=== PATIENT | female | born 1940 | race Caucasian/White ===

== ENCOUNTER → 2023-09-04 09:47 | Outpatient (REF) | payer OTHER, SELFPAY | LOC: RAD 09:47 | PROVIDERS: ATTENDING PHYSICIAN Surgery Vascular Surgery; FAMILY PHYSICIAN Internal Medicine | DX: I65.21 Occlusion and stenosis of right carotid artery (principal); I73.9 Peripheral vascular disease, unspecified | CPT/HCPCS: 93880; 93922; 93925 ==

== ENCOUNTER → 2023-10-04 09:53 | Outpatient (REF) | payer OTHER, SELFPAY | LOC: RCS 09:53 | PROVIDERS: ATTENDING PHYSICIAN Internal Medicine; FAMILY PHYSICIAN Internal Medicine | DX: I35.0 Nonrheumatic aortic (valve) stenosis (principal) | CPT/HCPCS: 93306 ==

== ENCOUNTER → 2024-04-06 10:33 | Outpatient (REF) | payer OTHER, SELFPAY | LOC: RAD 10:33 | PROVIDERS: ATTENDING PHYSICIAN Surgery Vascular Surgery; FAMILY PHYSICIAN Internal Medicine | DX: I73.9 Peripheral vascular disease, unspecified (principal); I65.21 Occlusion and stenosis of right carotid artery | CPT/HCPCS: 93880; 93922 ==

== ENCOUNTER 2024-06-03 20:16 | Inpatient (IN) | payer OTHER, SELFPAY ==
[2024-06-03] VITALS (11 sets, daily range): BP systolic 90–165; BP diastolic 56–116; BMI 35.3
--- NOTE | 2024-06-03 16:58 | ED.GENMED ---
History of Present Illness
General
Chief Complaint: Blood Pressure Problem
Source: patient
Time Seen by Provider: 06/03/24 16:37
History of Present Illness
History of Present Illness:
84-year-old female presents to the emergency room complaining of elevated blood pressure and heart rate and mild chest discomfort. Patient states she was feeling unwell today with palpitations and feeling not herself. Her blood pressure cuff gave
her a blood pressure reading of 190 systolic as well as a heart rate in the 140s. She did not feel that her or have any improvement of her measurements after relaxing for several minutes prompting her visit to the emergency room. Patient denies
any history of atrial fibrillation. She does not take any oral anticoagulants though she does take Plavix. Her plugger is Dr. Corral
Past History
Past History
ED Past Medical History: HTN, Hypercholesterolemia, Valvular disease and Other (OA,)
ED Past Surgical History: Cardiac, Cholecystectomy and Orthopedic
Social History
Tobacco: Former smoker
Alcohol: None
Drug: None
Personal:
Living: with family
Phy Exam
Physical Exam
Physical Exam:
General: Awake, Alert, Oriented X3. No acute distress.
Vitals: Tachycardic, mildly hypertensive
Head: Atraumatic
Eyes: Pupils equal, EOMI
Throat: Airway intact, no exudates
Neck: Trachea midline
Lungs: Clear and equal b/l
Heart: Tachycardic, irregular rate, no murmurs
Abd: Soft, Nontender, No pulsatile mass
Neuro: Nonfocal
Skin: No rash, warm and dry
Extremities: pulses equal b/l, no edema
Course
Orders/Labs/Results
Orders:
Orders
06/03/24 16:21
EKG [Electrocardiogram (*1)] Urgent
Reason for Study: Palpitations
EKG- Treatment ONCE
06/03/24 16:47
Complete Blood Count/With Diff Urgent
Comprehensive Metabolic Panel Urgent
Troponin I Urgent
06/03/24 16:55
Diltiazem 125 mg/125 ml Nss [Cardizem] 125 mg in 125 ml IV NOW
Initial dose in mg/hr, then titrate:: 5
Titrate to keep:: Heart rate 80-100 bpm
Titrate by mg/hr:: 5 mg/hr
Frequency of titrations (minutes):: 15
Maximum dose in mg/hr:: 15
Diltiazem HCl [Cardizem] 20 mg IV NOW STA
06/03/24 19:[address] Non Medication Order As Directed
Physician Order: PTT 6 hours after initial start of Heparin infusion
06/03/24 19:30
Heparin 21191 Units/250 ml 25,000 units in 250 ml IV PER PROTOCOL
Weight to be used for heparin protocol in kilograms (kg):: 86.1
Protocol:: Cardiac Tx/Acute Coronary
PTT Goal Range to be used:: PTT 73 to 111 seconds
Order type:: Initial
INITIAL Infusion Dose (UNITS/KG/hr) & then follow protocol:: 12 units/kg/hr
Infusion Dose in UNITS/hr & then follow protocol (UNITS/hr):: 1,000
INFUSION RATE in mL/hr & then follow protocol (mL/hr):: 10
PTT less than or equal to 64 seconds:: Increase rate by 200 units/hr (+ 2 mL/hr)
PTT 64.1 to 72.9 seconds:: Increase rate by 100 units/hr (+ 1 mL/hr)
PTT 73 to 111 seconds:: Target Range. No change in rate.
PTT 111.1 to 130.9 seconds:: Decrease rate by 100 units/hr (- 1 mL/hr)
PTT 131 to 199.9 seconds:: HOLD for 1 hr. Then decrease rate by 200 units/hr (- 2 mL/hr)
PTT greater than or equal to 200 seconds:: HOLD for 2 hrs & Notify Provider. Then decrease by 200 units/hr (-
2 mL/hr)
Lab follow-up:: Each change, PTT q6h until 2 consecutive are therapeutic. Then PTT
daily.
06/03/24 19:44
PTT Urgent
Comment: Obtain baseline before beginning heparin infusion if not already collected
06/03/24 19:55
Admit/Transfer Patient As Directed
Co-Sign Provider:
Level of Care: Inpatient admission
Assign to:: IVU
Physician / Group: anthony
Diagnosis: afib rvr
Reason for Hospitalization: afib rvr
Expected length of stay greater than two midnights?: Yes
ELOS- Estimated Length of Stay in days: 2
I certify the patient meets the requirements for IP care: Yes
Code Status As Directed
Resuscitation Status: Do not resuscitate
Reached after discussion with pt or family/Healthcare POA: Yes
PRN Pain Medication Management As Directed
May give lesser potent ordered pain med per pt: Yes
preference::
Protocol:: Medication orders for pain may be administered in a
manner that supports deferring to patient preference
when the pt is:
- Requesting an ordered lesser potent pain medication.
Least to most potent pain medications are defined
as: acetaminophen < NSAID < tramadol < opioids
(morphine, oxycodone, hydromorphone).
- Requesting a lesser dose of the same medication IF
ORDERED.
- Requesting a less intrusive route of administration
if both routes are prescribed by the provider (PO <
IV).
06/03/24 19:56
DNR Bracelet Application ONCE
Abnormal Lab Results
06/03/24
16:47
MCH 31.4 H pg
(27.0-31.0)
MPV 10.9 H fL
(7.4-10.4)
Absolute Monos (auto) 0.9 H 10^3/uL
(0.1-0.6)
Monocytes % 9.4 H %
(1.7-9.3)
BUN 32 H mg/dl
(7-17)
Glucose 134 H mg/dl
(70-99)
06/03/24 16:47
06/03/24 16:47
Vital Signs
Initial and Last Documented VS:
Initial Vital Signs
Temp Pulse Resp BP Pulse Ox
98.6 F 170 22 163/94 98
06/03/24 16:20 06/03/24 16:20 06/03/24 16:20 06/03/24 16:20 06/03/24 16:20
Last Documented Vital Signs
Temp Pulse Resp BP Pulse Ox
98.2 F 91 22 165/67 92
06/03/24 17:00 06/03/24 20:45 06/03/24 20:45 06/03/24 20:00 06/03/24 20:45
MDM/Problems Addressed
Differential Diagnosis Includes:
Atrial fibrillation, SVT, frequent PACs
MDM/Problems Addressed:
Patient noted to have atrial fibrillation with rapid ventricular response. Troponin is not elevated. Cardizem bolus and infusion started with adequate control of rate. Patient remains in A-fib. She is not anticoagulated and therefore not a
candidate for cardioversion here in the emergency room. Patient will require hospitalization for continued rate control, cardiology evaluation. Communicated with Dr. Mirian Hernandez who recommends heparin for now.
Chronic conditions affecting care: HTN and Other (Aortic stenosis with TAVR)
*Pulse Oximetry
Patient hypoxic: no
*EKG
Interpreted by ED Provider?: Yes
Interpretation: abnormal
Heart Rate: 147
Rate: tachycardiac
Rhythm: a-fib
QRS Pattern: left bundle branch block
Ischemia: non-specific ST changes
*Retail Cashier Associate Interpretation
Rate: tachycardiac
Interpretation: abnormal
Heart Rate: 147
Rhythm: a-fib
*Critical Care Note
Total Time (30-74mins, 75-104mins- exclusive of procedures): 32 min
comment:
Critical care statement: A total of 32 minutes of critical care time was provided for this patient. This includes management of unstable vital signs, evaluation of the patient at bedside, reviewing the patient's pertinent medical records, discussion
with consultants, review of old EKGs and review of pertinent medical records. This time with separate from time utilized to perform the aforementioned documented procedures
ED Attending Note
-
Portions of this chart may have been created with voice recognition software.� Occasional wrong word or��sound alike� substitutions may have occurred due to the inherent limitations of voice recognition software.
Discharge Plan
Departure
Patient Disposition: Admit
Date of Disposition: 06/03/24
Time of Disposition: 19:31
Admit to: Telemetry
Presentation/result/management discussed w/ accepting MD/DO: Hospitalist
Condition: Fair
Discharge Problem:
Atrial fibrillation with RVR
Interventions
Interventions:
*Risk Screen - Suicide Last Done: 06/03/24 16:20
*General Assessment Last Done: 06/03/24 16:20
*Neglect/Abuse Screening Last Done: 06/03/24 16:20
*ED- Fall Risk Assessment Last Done: 06/03/24 16:20
*ED COVID-19 Vaccine History Last Done: 06/03/24 16:20
ED- Cardiac Assessment Last Done: 06/03/24 17:00
ED- Neurological Assessment Last Done: 06/03/24 17:00
ED- Pulmonary Assessment Last Done: 06/03/24 17:00
[2024-06-03 16:59] LABS: % Basophils 0.7 % (0-2); % Eosinophils 1.5 % (0-6); % Immature Granulocytes 0.3 % (0-0.5); % Lymphocytes 26.8 % (20.5-51.1); % Monocytes 9.4 % (1.7-9.3); % Neutrophils 61.3 % (42.2-75.2); Absolute Basophils 0.1 10^3/uL (0-0.2); Absolute Eosinophils 0.1 10^3/uL (0-0.7); Absolute Lymphocytes 2.4 10^3/uL (1.2-3.4); Absolute Monocytes 0.9 10^3/uL (0.1-0.6); Absolute Neutrophils 5.6 10^3/uL (1.4-6.5); Hematocrit 40.7 % (37.0-47.0); Hemoglobin 14.1 g/dL (12.0-16.0); Mean Corp Hgb Conc. 34.6 g/dL (33.0-37.0); Mean Corpuscular Hgb 31.4 pg (27.0-31.0); Mean Corpuscular Volume 90.6 fL (81.0-99.0); Mean Platelet Volume 10.9 fL (7.4-10.4); Nucleated Red Blood Cells % 0 %; Platelet Count 185 10^3/uL (130-400); Red Blood Cell Count 4.49 10^6/uL (4.20-5.40); Red Cell Dist. Width 13.6 % (11.5-14.5); White Blood Cell Count 9.1 10^3/uL (4.8-10.8)
[2024-06-03] MEDS: CARDIZEM 20 MG IV (17:10)
[2024-06-03] MEDS: CARDIZEM 125 IV (17:11)
[2024-06-03 17:14] LABS: ALT (SGPT) 29 U/L (0-35); AST (SGOT) 34 U/L (14-36); Albumin 4.4 g/dl (3.5-5.0); Alkaline Phosphatase 79 U/L (38-126); Blood Urea Nitrogen 32 mg/dl (7-17); Calcium 9.6 mg/dl (8.4-10.2); Carbon Dioxide 26 mmol/L (22-30); Chloride 105 mmol/L (98-107); Estimated Creatinine Clearance 43 ml/min; Glucose 134 mg/dl (70-99); Potassium 4.2 mmol/L (3.5-5.1); Sodium 140 mmol/L (135-145); Total Bilirubin 0.6 mg/dl (0.2-1.3); Total Protein 6.7 g/dl (6.3-8.2)
[2024-06-03 17:31] LABS: Troponin I 0.015 ng/ml
--- NOTE | 2024-06-03 19:59 | HPS.HSE ---
Family Physician
-
Family Physician: Forrest Fallon
Chief Complaint
-
tachycardia, chest tightness
History of Present Illness
84-year-old female past medical history of CAD, chronic left bundle branch block, severe aortic stenosis status post TAVR, paroxysmal supraventricular tachycardia, TIA, hypertension, hyperlipidemia, peripheral arterial disease, obesity, degenerative
joint disease, chronic back pain presenting with elevated blood pressure and heart rate and mild chest discomfort. Patient is feeling unwell today with palpitations and not feeling herself. Her blood pressure was 190 systolic and heart rate in the
140s. Denies history of atrial fibrillation. She has chronic dizziness. No fevers or chills or cough. No swelling or weight gain.
She is a former smoker. Drinks alcohol occasionally.
Medical History
Past Medical History
Past Medical History: Reports Other (CAD, chronic left bundle branch block, severe aortic stenosis status post TAVR, paroxysmal supraventricular tachycardia, TIA, hypertension, hyperlipidemia, peripheral arterial disease, obesity, degenerative joint
disease, chronic back pain)
Past Surgical History: Reports None
Social History
Tobacco: Former Smoker
Alcohol: Occasional
Drug: None
Family History
Family History: Not pertinent
Allergies / Home Medications
Allergies reflects when Allergies were last updated in [facility].
Home Medications with original date entered in [facility]
Allergy/Medication List:
Allergies
Allergy/AdvReac Type Severity Reaction Status Date / Time
bacitracin Allergy sore would Verified 05/28/22 07:25
[From Neosporin not heal
([id number])]
neomycin Allergy sore would Verified 05/28/22 07:25
[From Neosporin not heal
([id number])]
polymyxin B Allergy sore would Verified 05/28/22 07:25
[From Neosporin not heal
([id number])]
Home Medications
cyanocobalamin (vitamin B-12) 1,000 mcg tablet 1,000 mcg sublingual DAILY Supplement 06/07/20
calcium 600 mg (as carbonate)-vitamin D3 20 mcg (800 unit) tablet 0.5 tab PO DAILY Supplement 05/02/21
clopidogrel 75 mg tablet 75 mg PO QPM Blood clot prevention/tx 11/25/21
aspirin 81 mg tablet,delayed release 81 mg PO DAILY #90 tabs 05/29/22
atorvastatin 20 mg tablet 10 mg PO QPM 06/03/24
cholecalciferol (vitamin D3) 50 mcg (2,000 unit) tablet (Vitamin D3) 50 mcg PO DAILY 06/03/24
hydrochlorothiazide 12.5 mg tablet 12.5 mg PO DAILY 06/03/24
metoprolol succinate 25 mg tablet,extended release 24 hr 25 mg PO QPM 06/03/24
therapeutic multivitamin 0.5 tab PO DAILY 06/03/24
Review of Systems
-
History Source: Patient
A 12 point ROS was completed and negative except as noted: Yes
Constitutional: Reports No Symptoms
EENT: Reports No Symptoms
Respiratory: Reports See HPI
Cardiac: Reports See HPI
Abdomen/GI: Reports No Symptoms
: Reports No Symptoms
Musculoskeletal: Reports No Symptoms
Skin: Reports No Symptoms
Neurological: Reports No Symptoms
Endocrine: Reports No Symptoms
Hematologic/Lymphatic: Reports No Symptoms
Psych: Reports No Symptoms
Physical Exam
Vital Signs
Vital Signs
Temp Pulse Resp BP Pulse Ox
98.2 F 135 18 141/116 98
06/03/24 17:00 06/03/24 17:10 06/03/24 16:45 06/03/24 17:10 06/03/24 17:00
Physical Exam
General: Well Developed, Well Nourished and No Apparent Distress
HEENT: NormoCephalic, Moist mucous membranes and Atraumatic
Respiratory: Clear
Cardiac: S1/S2 and Regular Rhythm; No Murmur or Rub
GI: Soft, Non Tender, Non Distended and Normal Bowel Sounds; No Organomegaly
Rectal: Deferred by Provider
Musculoskeletal: No Clubbing, No Cyanosis and No Edema
Skin: No Rash
Neuro: Nonfocal/grossly intact
Laboratory Results
-
06/03/24 16:47
06/03/24 16:47
Laboratory Results
Total Bilirubin 0.6 mg/dl (0.2-1.3) 06/03/24 16:47
AST 34 U/L (14-36) 06/03/24 16:47
ALT 29 U/L (0-35) 06/03/24 16:47
Alkaline Phosphatase 79 U/L (38-126) 06/03/24 16:47
Troponin I 0.015 ng/ml 06/03/24 16:47
Data Reviewed
-
Lab Data: Labs Reviewed by me
Old Records: Reviewed
Impression/Plan
-
IMPRESSION:
PLAN:
# New onset atrial fibrillation with RVR
-Cardizem drip
-Heparin drip
-Check echo, TSH
-Cardiology consulted
History of CAD
-Continue aspirin
-Hold Plavix since now on heparin
History of paroxysmal supraventricular tachycardia
Chronic left bundle branch block
Severe aortic stenosis status post TAVR
History of TIA
-Continue aspirin
-Hold Plavix since heparin being started
-Continue statin
Essential hypertension
-Continue hydrochlorothiazide
-Continue metoprolol
Hyperlipidemia
Peripheral arterial disease
Obesity
Degenerative joint disease
Chronic back pain
DNR/DNI
DVT prophylaxis�heparin drip
Cardiac diet
[2024-06-03 20:02] LABS: APTT 27.5 Sec (23.4-35.0)
[2024-06-03] MEDS: HEPARIN 25000 UNITS/250 ML IV (20:25)
--- NOTE | 2024-06-03 22:20 | PTCARENOTE ---
Received verbal report from PERRY Slade. Pt arrived to unit via stretcher from ED. Pt aaox3. afib on monitor, hr 80-90s. Pt is 93% on RA. Cardizem gtt infusing at 5 mL/hr. Heparin gtt infusing at 10 mL/hr. Admission assessment completed and pt
oriented to unit. Hygiene completed. Pt resting in bed with call lopez in reach.
[2024-06-03 22:57] LABS: TSH Reflex To Free T4 1.92 uIU/ml (0.47-4.68)
[2024-06-04] VITALS (38 sets, daily range): BP systolic 72–131; BP diastolic 47–88; PULSE 70; BMI 34.8
--- NOTE | 2024-06-04 00:34 | PTCARENOTE ---
Cardizem gtt titrated based on hr (see worklist). Gtt turned off at 2345, hr was 68 at that time. [facility] notified. Current heart rate 78.
[2024-06-04 03:57] LABS: % Basophils 0.6 % (0-2); % Eosinophils 1.4 % (0-6); % Immature Granulocytes 0.3 % (0-0.5); % Lymphocytes 26.8 % (20.5-51.1); % Monocytes 8.2 % (1.7-9.3); % Neutrophils 62.7 % (42.2-75.2); Absolute Basophils 0.1 10^3/uL (0-0.2); Absolute Eosinophils 0.2 10^3/uL (0-0.7); Absolute Lymphocytes 2.9 10^3/uL (1.2-3.4); Absolute Monocytes 0.9 10^3/uL (0.1-0.6); Absolute Neutrophils 6.8 10^3/uL (1.4-6.5); Hematocrit 40.6 % (37.0-47.0); Hemoglobin 14.2 g/dL (12.0-16.0); Mean Corpuscular Hgb 31.6 pg (27.0-31.0); Mean Corpuscular Volume 90.2 fL (81.0-99.0); Mean Platelet Volume 10.4 fL (7.4-10.4); Nucleated Red Blood Cells % 0 %; Platelet Count 175 10^3/uL (130-400); Red Cell Dist. Width 13.7 % (11.5-14.5); White Blood Cell Count 10.8 10^3/uL (4.8-10.8)
[2024-06-04 04:03] LABS: APTT 93.8 Sec (23.4-35.0)
--- NOTE | 2024-06-04 05:09 | W.PN.UPDATE ---
Update Note
Progress Note Update
Reported by the nursing staff that the patient is hypotensive with SBP 70s-80s asymptomatic (MAP 68), hr 75. Will give one time order of 500cc of normal saline.
[2024-06-04] MEDS: NSS 500 IV (05:15)
[2024-06-04 05:20] LABS: ALT (SGPT) 29 U/L (0-35); AST (SGOT) 37 U/L (14-36); Albumin 4.5 g/dl (3.5-5.0); Alkaline Phosphatase 91 U/L (38-126); Blood Urea Nitrogen 29 mg/dl (7-17); Calcium 9.8 mg/dl (8.4-10.2); Carbon Dioxide 23 mmol/L (22-30); Chloride 107 mmol/L (98-107); Estimated Creatinine Clearance 47 ml/min; Glucose 132 mg/dl (70-99); Potassium 4.5 mmol/L (3.5-5.1); Sodium 141 mmol/L (135-145); Total Bilirubin 0.7 mg/dl (0.2-1.3); Total Protein 6.5 g/dl (6.3-8.2); eGFR > 60.00
--- NOTE | 2024-06-04 06:19 | PTCARENOTE ---
Pt's blood pressure 72/62, MAP 68, HR 75. [facility] Wing notified. 500 mL bolus Rx'd to be given at 100 mL/hr. IVF infusing now.
--- NOTE | 2024-06-04 09:01 | CON.CAR ---
Addendum entered and electronically signed by Orion Anna MD 06/04/24 10:10:
Patient seen and examined in collaboration with TRIAL PARALEGAL; agree with below.
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
atrial fibrillation with RVR.
-The patient was placed on a Cardizem drip and has now reverted back to sinus rhythm.
-Increase Toprol-XL from 25 mg daily to 25 mg twice daily.
-Echocardiogram today; if no change, can discontinue heparin drip and placed on Eliquis 5 mg twice daily.
-Continue to monitor blood pressure; may need to discontinue HCTZ with increase in beta-joss.
Original Note:
Consultation
Consultation Request
Date/Time Consultation Requested: 06/04/24 0832
Date/Time Consultation Performed: 06/04/24 0900
Requesting Provider: Dr. Houser
Performing Provider: Meka TOBAR for Dr. Barnett
Reason for Consultation: afib
Medical History
-
Chief Complaint: palpitations
History of Present Illness:
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
and seen to be in AFIB with RVR. Now back in SR.
Past Medical History
Past Medical History: Arrhythmias, CAD, HTN, Hypercholesterolemia, Valvular Disease and Other (as above)
Social History
Tobacco: Former Smoker
Family History
Family History: Reviewed & Not Pertinent
Allergies / Home Medications
Allergy/AdvReac Type Severity Reaction Status Date / Time
bacitracin Allergy sore would Verified 05/28/22 07:25
[From Neosporin not heal
([id number])]
neomycin Allergy sore would Verified 05/28/22 07:25
[From Neosporin not heal
([id number])]
polymyxin B Allergy sore would Verified 05/28/22 07:25
[From Neosporin not heal
([id number])]
�Medication �Instructions �Recorded �Confirmed �Type
cyanocobalamin (vitamin B-12) 1,000 mcg sublingual DAILY 06/07/20 06/03/24 History
1,000 mcg tablet Supplement
calcium 600 mg (as 0.5 tab PO DAILY Supplement 05/02/21 06/03/24 History
carbonate)-vitamin D3 20 mcg (800
unit) tablet
clopidogrel 75 mg tablet 75 mg PO QPM Blood clot 11/25/21 06/03/24 History
prevention/tx
aspirin 81 mg tablet,delayed 81 mg PO DAILY #90 tabs 05/29/22 06/03/24 Rx
release
atorvastatin 20 mg tablet 10 mg PO QPM 06/03/24 06/03/24 History
cholecalciferol (vitamin D3) 50 50 mcg PO DAILY 06/03/24 06/03/24 History
mcg (2,000 unit) tablet (Vitamin
D3)
hydrochlorothiazide 12.5 mg tablet 12.5 mg PO DAILY 06/03/24 06/03/24 History
metoprolol succinate 25 mg 25 mg PO QPM 06/03/24 06/03/24 History
tablet,extended release 24 hr
therapeutic multivitamin 0.5 tab PO DAILY 06/03/24 06/03/24 History
Review of Systems
-
History Source: Patient
All other systems: Negative unless noted
Cardiac: Palpitations
Physical Exam
Vital Signs
Temp Pulse Resp BP Pulse Ox
98.5 F 77 22 114/73 91
06/04/24 07:37 06/04/24 07:00 06/04/24 07:00 06/04/24 07:00 06/04/24 07:00
Lab Results
06/04/24 03:46
06/04/24 03:46
Troponin I 0.015 ng/ml 06/03/24 16:47
Physical Exam
General: Well Developed, Well Nourished and No Apparent Distress
HEENT: Normocephalic and Anicteric
Respiratory: Clear and Non Labored Respirations
Cardiac: Regular Rhythm
Musculoskeletal: No Edema
Skin: Warm and Dry
Neuro: AO x 3
Psych: Calm
Impression / Plan
-
AFIB with RVR: new diagnosis
-now back in SR. Will increase metoprolol.
-TSH WNL. Check echo.
-[id number] score: 7 for age, female, HTN, vascular disease, hx TIA- continue heparin drip, which requires intensive monitoring, but once echo back and normal EF will switch to Eliquis 5 mg PO BID. Will have CM assess pricing- appreciate their help
on this.
CAD with RCA SLUDGE CONTROL OPERATOR:
-stable
-continue ASA, statin, BB
Carotid disease, PAD:
-continue ASA, statin
-continue follow with vascular team as OP
HTN:
-BP soft overnight. Got IVF.
-will stop HCTZ for now, can add back if needed
-BB increased as noted
s/p TAVR:
-stable on last echo, but we are updating
LBB:
-chronic, stable
Data Reviewed
-
EKG: Tracing Personally Visualized and interpreted (AFIB with RVR, IC LBBB)
Medical Tests (Nuc Med, Echo etc): Report Reviewed by me (Echo 10/04/23: Hyperdynamic left ventricular systolic function. LV ejection fraction is 70-75%. s/p TAVR. The peak/mean gradients across the valve are 29/16 mmHg. No aortic regurgitation.
Mild/moderate tricuspid regurgitation. Normal PASP. )
Labs: Labs Reviewed by me
[2024-06-04] MEDS: ASPIR LOW (ENTERIC COATED) 81 MG PO (09:03)
[2024-06-04] MEDS: VITAMIN B-12 PO (09:04)
[2024-06-04] MEDS: OSCAL 500 + D 250 MG PO (09:05)
[2024-06-04] MEDS: ORETIC 12.5 MG PO (09:05)
[2024-06-04] MEDS: THERAGRAN 0.5 TABLET PO (09:06)
[2024-06-04] MEDS: VITAMIN D3 (cholecalciferol) PO (09:07)
--- NOTE | 2024-06-04 09:52 | W.PN.HOSP.TC ---
Today's Communication/Plan
-
monitor for urinary retention
po meds toprol/eliquis
oob/ambulate/PT eval
ECHO
Assessment / Plan
Assessment / Plan
# New onset atrial fibrillation with RVR
-s/p cardizem gtt and hep gtt
-converted to NSR
-Plan to start Eliquis
-Adjust/increase toprol
-TSH 1.92
-ECHO pending
-cards following
Urinary retention
-bladder scan/straight cath protocol
-encourage ambulation
History of CAD
-Continue aspirin
-Hold Plavix since now on Eliquis ?
-cards following
History of paroxysmal supraventricular tachycardia
Chronic left bundle branch block
Severe aortic stenosis status post TAVR
History of TIA s/p CEA
-Continue aspirin
-Continue statin
Essential hypertension
-Continue hydrochlorothiazide
-Continue metoprolol
Hyperlipidemia
Peripheral arterial disease
Obesity
Degenerative joint disease
Chronic back pain
DNR/DNI
DVT prophylaxis�eliquis
t
Anticipated Discharge: 24 - 48 hours
Subjective/Interval History
-
Date of Service: June 04, 2024
feeling better compared to yesterday
converted to NSR
retained urine overnight and require straight cath
Objective Data
-
Labs:
Laboratory Results
06/04/24 06/04/24
03:46 09:45
WBC 10.8
Hgb 14.2
Hct 40.6
Plt Count 175
APTT 93.8 H Pending
Sodium 141
Potassium 4.5
Chloride 107
Carbon Dioxide 23
BUN 29 H
Creatinine 0.9
Glucose 132 H
Calcium 9.8
Total Bilirubin 0.7
AST 37 H
ALT 29
Alkaline Phosphatase 91
Vital Signs:
Vital Signs
Temp Pulse Resp BP Pulse Ox
98.5 F 77 22 114/73 91
06/04/24 07:37 06/04/24 07:00 06/04/24 07:00 06/04/24 07:00 06/04/24 07:00
I&O
06/03/24 06/04/24 06/05/24
06:59 06:59 06:59
Output Total 725 / 725
Balance -725 / -725
Physical Exam
-
General: Well Developed, Well Nourished and No Apparent Distress
HEENT: Normocephalic, Atraumatic, Moist Mucous Membranes and PERRLA
Respiratory: Clear to Auscultation
Cardiac: Regular Rhythm and S1/S2; Negative Murmur, Rub or JVD
GI: Soft, Nontender, Nondistended and Normal Bowel Sounds
Musculoskeletal: No Clubbing, No Cyanosis and No Edema
Neuro: Awake, Alert, Oriented, No Motor Deficits and Nonfocal/Grossly Intact
Psych: Calm
Data Reviewed
-
Total Time Spent with Patient (in minutes): 55
[2024-06-04 11:06] LABS: APTT 103.9 Sec (23.4-35.0)
--- NOTE | 2024-06-04 11:13 | CM ---
CM consult received for villalba check of Eliquis 5mg PO BID. Per [facility] Pharmacist, cost will be $147.00/month.
--- NOTE | 2024-06-04 12:17 | CM ---
Reviewed the chart notes and spoke with the patient at the bedside. CM consults for advanced directives and villalba check for Eliquis 5mg PO BID received. Advance directive packet provided to the patient. Patient informed Eliquis would be
$147/month. She will discuss with her son.
Patient resides with son in a two story home with two steps to enter. The patient has a rolling walker, cane, shower seat if needed. The patient has had [facility] in the past and if appropriate would be open to using them again. The patient reports
no SNF in the past. The patient confirmed her [facility] of choice [facility]. CM continues to be available to patient/family and is monitoring medical plan for needs at discharge.
Plan: Discharge plans will depend on the patient's progress.
[2024-06-04] MEDS: TOPROL XL 25 MG PO ×2 (12:36→20:25)
--- NOTE | 2024-06-04 13:37 | W.PN.UPDATE ---
Update Note
Progress Note Update
Echo stable. Stop heparin and switch to Eliquis tonight. Remain off plavix. Monitor telemetry/BP's.
--- NOTE | 2024-06-04 16:13 | PTCARENOTE ---
made aware patient is still retaining urine. See bladder scan flowsheet for PVR. Patient is refusing a straight cath. Pt states 'it will cause me too much stress.' RN attempted to educate patient about risks associated with retaining
urine. Pt verbalized understanding but states 'it is not a problem, I am peeing fine.' advised 'If she agrees for straight cath then okay. However, if PVR >600-700 may require [address] kirk. Otherwise we can monitor.' Patient also provided
with Urinary retnetion education packet from [employer].
[2024-06-04] MEDS: LIPITOR 10 MG PO (17:37)
[2024-06-04] MEDS: FLOMAX 0.4 MG PO (18:17)
--- NOTE | 2024-06-04 18:46 | PTCARENOTE ---
Pt's PVR was 700. Again RN, educated patient about retention. Pt still refusing st.cath and [place]. made aware. Order for Flomax and administered.
[2024-06-04] MEDS: ELIQUIS 5 MG PO (20:25)
--- NOTE | 2024-06-04 20:42 | PTCARENOTE ---
Rec'd pt at change of shift. Pt oriented, pleasant, however, adamantly refuses bladder scan/st cath, education provided. Pt is able to void in bathroom, but small amounts. Pt states that she will follow up outpatient about retention. Initial dose PO
eliquis given and IV heparin gtt stopped per MD orders. Pt states that she has not gotten sleep while admitted and asks this RN to cluster care to allow for sleep this evening. Call lopez within reach. Continuous monitoring remains in place. Care
ongoing.
[2024-06-05] VITALS (12 sets, daily range): BP systolic 89–134; BP diastolic 39–58; BMI 34.7
[2024-06-05 04:03] LABS: Hematocrit 37.3 % (37.0-47.0); Hemoglobin 12.7 g/dL (12.0-16.0); Mean Corpuscular Hgb 31.2 pg (27.0-31.0); Mean Corpuscular Volume 91.6 fL (81.0-99.0); Mean Platelet Volume 11.3 fL (7.4-10.4); Platelet Count 169 10^3/uL (130-400); Red Blood Cell Count 4.07 10^6/uL (4.20-5.40); Red Cell Dist. Width 13.6 % (11.5-14.5); White Blood Cell Count 8.2 10^3/uL (4.8-10.8)
[2024-06-05 04:36] LABS: Blood Urea Nitrogen 23 mg/dl (7-17); Calcium 9.4 mg/dl (8.4-10.2); Carbon Dioxide 27 mmol/L (22-30); Chloride 107 mmol/L (98-107); Estimated Creatinine Clearance 53 ml/min; Glucose 108 mg/dl (70-99); Potassium 4.5 mmol/L (3.5-5.1); Sodium 140 mmol/L (135-145); eGFR > 60.00
[2024-06-05] MEDS: THERAGRAN 0.5 TABLET PO (08:02)
[2024-06-05] MEDS: VITAMIN B-12 1000 MCG PO (08:03)
[2024-06-05] MEDS: OSCAL 500 + D 250 MG PO (08:03)
[2024-06-05] MEDS: VITAMIN D3 (cholecalciferol) 50 MCG PO (08:03)
[2024-06-05] MEDS: ASPIR LOW (ENTERIC COATED) 81 MG PO (08:03)
[2024-06-05] MEDS: ELIQUIS 5 MG PO ×2 (08:04→19:52)
[2024-06-05] MEDS: TOPROL XL 25 MG PO ×2 (08:04→19:53)
--- NOTE | 2024-06-05 10:38 | W.PN.CD ---
Today's Communication / Plan
-
-Patient is going in and out of atrial fibrillation; had another episode of A-fib with RVR to 120-130 bpm this a.m.
-Echocardiogram yesterday with overall normal/stable cardiac function.
-Continue Eliquis.
-Plan will be for SPENCER/Tikosyn initiation as an inpatient; unfortunately, the patient ate breakfast this morning.
-Patient will have to be monitored over the weekend on telemetry.
-Transfer to IVU in preparation for Tikosyn initiation after SPENCER on Saturday.
Impression / Plan
-
Paroxysmal AFIB with RVR: new diagnosis
-Patient is going in and out of atrial fibrillation; had another episode of A-fib with RVR to 120-130 bpm this a.m.
-TSH WNL.
-Echocardiogram yesterday with overall normal/stable cardiac function.
-[id number] score: 7 for age, female, HTN, vascular disease, hx TIA.
-Continue Eliquis.
-Plan will be for SPENCER/Tikosyn initiation as an inpatient; unfortunately, the patient ate breakfast this morning.
-Patient will have to be monitored over the weekend on telemetry.
-Transfer to IVU in preparation for Tikosyn initiation after SPENCER on Saturday.
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
-Remains stable
-continue ASA, statin, BB
Carotid disease, PAD:
-Stable.
-continue ASA, statin
-continue follow with Vascular team as OP
HTN:
-Blood pressure is well-controlled on higher dose of metoprolol succinate; no need to resume hydrochlorothiazide at this time.
s/p TAVR:
-Stable on echocardiogram yesterday.
LBB:
-chronic, stable
Physical Exam
Vital Signs/Labs
Vital Signs
Temp Pulse Resp BP Pulse Ox
97.3 F 65 21 108/53 95
06/05/24 07:15 06/05/24 08:00 06/05/24 08:00 06/05/24 08:00 06/05/24 09:52
06/04/24 06/05/24 06/06/24
06:59 06:59 06:59
Actual Weight 84.9 kg 84.7 kg
06/05/24 03:34
06/05/24 03:34
APTT 103.9 Sec (23.4-35.0) H 06/04/24 10:33
Magnesium 2.0 mg/dl (1.6-2.3) 06/05/24 03:34
LAB Results
06/03/24
16:47
Troponin I 0.015
Physical Exam
Constitutional: No acute distress and Comfortable
EENT: Anicteric
Cardiovascular: Rhythm & rate is regular, Pedal edema is absent, Systolic murmur present (2/6) and S1S2 is normal
Respiratory: Respiratory effort normal and Lungs clear to auscul.
GI: Soft
Neuro/Psych: AO x 3
Other: Skin (Warm, dry, intact)
Data Reviewed
-
Date of Service: June 05, 2024
Echo: Tracing Personally Visualized and interpreted (LVEF 70-75%; TAVR with peak/mean gradients of 30/17 mmHg.)
Medical Tests (PFT, Pathology etc): Discussed with Physician (Primary Hospitalist) and Discussed with Nurse (Nurse at bedside)
Labs: Labs Reviewed by me
--- NOTE | 2024-06-05 12:23 | W.PN.HOSP.TC ---
Today's Communication/Plan
-
SPENCER saturday
tikosyn loading
Assessment / Plan
Assessment / Plan
# New onset atrial fibrillation with RVR
-s/p cardizem gtt and hep gtt
-in and out of Afib
-Started on Eliquis
-Adjust/increase toprol to 25mg BID
-TSH 1.92
-ECHO 70-75%. Wall motion consistent with conduction abnormality.
-Plan for SPENCER/Tikosyn loading next week.
-cards following
Urinary retention
-bladder scan/straight cath protocol
-encourage ambulation
-Refusing kirk catheter placement
-probably chronic issue
History of CAD
-Continue aspirin
-Plan to DC plavix as on Eliquis
-cards following
History of paroxysmal supraventricular tachycardia
Chronic left bundle branch block
Severe aortic stenosis status post TAVR
History of TIA s/p CEA
-Continue aspirin
-Continue statin
Essential hypertension
-DC hydrochlorothiazide
-Continue metoprolol
-BP well controlled 123/56
Hyperlipidemia
Peripheral arterial disease
Obesity
Degenerative joint disease
Chronic back pain
DNR/DNI
DVT prophylaxis�eliquis
Awaiting IVU bed
d/w with cardiology
Anticipated Discharge: > 48 hours
Subjective/Interval History
-
Date of Service: June 05, 2024
Going in and out of afib.
was in NSR during my eval
but w/RVR in 120s later
denies any bladder spasms/suprapubic pain
denies dysuria
Objective Data
-
Labs:
Laboratory Results
06/05/24
03:34
WBC 8.2
Hgb 12.7
Hct 37.3
Plt Count 169
Sodium 140
Potassium 4.5
Chloride 107
Carbon Dioxide 27
BUN 23 H
Creatinine 0.8
Glucose 108 H
Calcium 9.4
Vital Signs:
Vital Signs
Temp Pulse Resp BP Pulse Ox
97.3 F 68 18 123/56 95
06/05/24 07:15 06/05/24 12:00 06/05/24 12:00 06/05/24 12:00 06/05/24 09:52
I&O
06/04/24 06/05/24 06/06/24
06:59 06:59 06:59
Intake Total 2300 / 2300
Output Total 2875 / 2875 500 / 500
Balance -575 / -575 -500 / -500
Physical Exam
-
General: Well Developed, Well Nourished and No Apparent Distress
HEENT: Normocephalic, Atraumatic, Moist Mucous Membranes and PERRLA
Respiratory: Clear to Auscultation
Cardiac: Regular Rhythm and S1/S2; Negative Murmur, Rub or JVD
GI: Soft, Nontender, Nondistended and Normal Bowel Sounds
Musculoskeletal: No Clubbing, No Cyanosis and No Edema
Neuro: Awake, Alert, Oriented, No Motor Deficits and Nonfocal/Grossly Intact
Psych: Calm
--- NOTE | 2024-06-05 14:49 | PTCARENOTE ---
Assumed care of patient at beginning of this shift from previous RN. Patient voided 500ml on initial rounds on commode; clear yellow. Telemetry strip showed SR with PACs, 1st deg HR; HRIR. Dr Plaza up to see patient and stated patient noted to be
in and out of afib; patient to stay for SPENCER and Tikosyn. He notified Dr Houser. Patient to be transferred to [facility]; report given to Mell. Patient updated. See worklist for full assessment and vital signs.
--- NOTE | 2024-06-05 15:12 | PTCARENOTE ---
Patient transferred to [id number] with belongings.
[2024-06-05] MEDS: LIPITOR 10 MG PO (18:23)
--- NOTE | 2024-06-05 18:47 | PTCARENOTE ---
Pt transferred from IMU via wheelchair. Pt denies any discomfort. Pt up independently and states she is voiding without difficulty. Telemetry shows atrial fib at a rate of 60-100. Pt given information about atrial fib, her medications and plan of
care and she states understanding.
[2024-06-06] VITALS (8 sets, daily range): BP systolic 122–158; BP diastolic 46–77; PULSE 70; O2SAT 98; BMI 34.4
[2024-06-06 05:39] LABS: Blood Urea Nitrogen 28 mg/dl (7-17); Calcium 9.2 mg/dl (8.4-10.2); Carbon Dioxide 27 mmol/L (22-30); Chloride 107 mmol/L (98-107); Estimated Creatinine Clearance 47 ml/min; Glucose 100 mg/dl (70-99); Potassium 4.7 mmol/L (3.5-5.1); Sodium 142 mmol/L (135-145); eGFR > 60.00
[2024-06-06] MEDS: FLUSH (NSS) 1 FLUSH IV (09:07)
[2024-06-06] MEDS: ASPIR LOW (ENTERIC COATED) 81 MG PO (09:08)
[2024-06-06] MEDS: THERAGRAN 0.5 TABLET PO (09:08)
[2024-06-06] MEDS: TOPROL XL 25 MG PO (09:09)
[2024-06-06] MEDS: ELIQUIS 5 MG PO ×2 (09:09→21:00)
[2024-06-06] MEDS: VITAMIN B-12 1000 MCG PO (09:09)
[2024-06-06] MEDS: VITAMIN D3 (cholecalciferol) 50 MCG PO (09:09)
[2024-06-06] MEDS: OSCAL 500 + D 250 MG PO (09:11)
--- NOTE | 2024-06-06 09:31 | W.PN.CD ---
Addendum entered and electronically signed by Sergio Khalil MD 06/06/24 11:07:
I saw and examined the patient.
The DRIVER SUPERVISOR's note was reviewed and I agree with the note.
Comment: No need for SPENCER as we are seeing more and more sinus rhythm. Will start Dofetilide. She will need 6 doses of dofetilide prior to discharge. Monitor on telemetry.
Original Note:
Today's Communication / Plan
-
She is going in and out of sinus rhythm, she will not require a SPENCER
Start dofetilide today
Impression / Plan
-
I/P: 84F with severe aortic stenosis (s/p TAVR 2021), CAD (PORTFOLIO STRATEGIST of RCA), PSVT, carotid artery stenosis (CEA 05/2022), PAD (90% innominate, 70% common CCA), LBBB, HTN, HLD, prior TIA, preDM, & obesity who presented to the emergency department with a
chief complaint of palpitations. She was found to be in atrial fibrillation with rapid ventricular response.
Outpatient epic prelude analyst: Dr. Anna
Paroxysmal atrial fibrillation, NEW diagnosis this admission
-Patient is going in and out of atrial fibrillation; having episodes of RVR
-TSH WNL. No significant electrolyte abnormalities
-[id number] score: 7 for age, female, HTN, vascular disease, TIA.
-Oral anticoagulation: Apixaban 5 mg twice daily, initiated 06/04/2024
-Plan: Start dofetilide today, this will require intensive monitoring.
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
-Stable without chest pain
-On metoprolol succinate and atorvastatin, can consider discontinuation of aspirin now that she is on apixaban
Carotid disease, PAD, chronic
-Stable on medical therapy
-Continue follow with Vascular team as an OP
HTN:
-Blood pressure is well-controlled on higher dose of metoprolol succinate
-Do not resume HCTZ as we will be initiating dofetilide
s/p TAVR:
-Stable on echocardiogram, well-seated with peak/mean gradients 30/17 mmHg
LBBB, chronic and stable
HLD, continue atorvastatin
Prediabetes
SUBJECTIVE:
Feeling well without chest pain, shortness of breath, and dizziness.
Physical Exam
Vital Signs/Labs
Vital Signs
Temp Pulse Resp BP Pulse Ox
97.6 F 58 16 134/50 96
06/06/24 07:09 06/06/24 09:10 06/06/24 07:09 06/06/24 09:10 06/06/24 07:09
06/05/24 06/06/24 06/07/24
06:59 06:59 06:59
Actual Weight 84.7 kg 84 kg
06/05/24 03:34
06/06/24 04:30
APTT 103.9 Sec (23.4-35.0) H 06/04/24 10:33
Magnesium 2.0 mg/dl (1.6-2.3) 06/05/24 03:34
LAB Results
06/03/24
16:47
Troponin I 0.015
Physical Exam
Constitutional: No acute distress and Comfortable
EENT: Anicteric and Moist mucous membranes
Cardiovascular: Rhythm & rate is regular and Pedal edema is absent
GI: Soft, Flat and Non tender
Neuro/Psych: AO x 3
Other: Skin (Warm and dry without edema)
Data Reviewed
-
Date of Service: June 06, 2024
--- NOTE | 2024-06-06 10:13 | W.CARD.TIKOS ---
Addendum entered and electronically signed by AMADOU Marino 06/06/24 11:17:
Patient received HCTZ at 06/04/2024 at approximately 9:05 AM per documentation. Reviewed with EP. Cuadra to proceed with dofetilide initiation.
Original Note:
Initiate Tikosyn
-
I verify that the patient has not taken any verapamil (Isoptin/Calan), ketoconazole (Nizoral), cimetidine (Tagamet), trimethoprim (Trimpex), trimethoprim/sulfamethoxazole (Bactrim), megesterol (Megace), prochlorperazine (Compazine),
hydrochlorothiazide (HCTZ), dolutegravir (Tivicay) or any Class I or Class III anti-arrhythmic within the last three days
AND
I verify that the patient has not taken amiodarone within the last THREE months, or that the patient's amiodarone plasma concentration is <0.3 mcg/mL.
Creatinine 0.9 mg/dL (0.6-1.0) 06/06/24 04:30
Estimated Creat Clear 47 ml/min 06/06/24 04:30
I have assessed the baseline QTc interval (using QT for heart rate less than 60 bpm) and deemed the patient is appropriate for Dofetilide therapy. I understand that Tikosyn is contraindicated if the QTc is >440msec (500msec in patients with
ventricular conduction abnormalities).
Baseline QTc (in msec): 400
Reason for Administration with Prolonged QTc: Bundle Branch Block (iLBBB)
Ordering Physician: Orion Anna
--- NOTE | 2024-06-06 11:18 | W.PN.HOSP.TC ---
Today's Communication/Plan
-
Tikosyn loading protocol
flomax
oob/ambulate
cont eliquis
Assessment / Plan
Assessment / Plan
# New onset atrial fibrillation with RVR
-s/p cardizem gtt and hep gtt
-in and out of Afib
-Started on Eliquis
-Toprol decrease to 25mg daily from BID earlier
-TSH 1.92
-ECHO 70-75%. Wall motion consistent with conduction abnormality.
-No plan for SPENCER
-Started on Tikosyn loading per EP
-cards following
Urinary retention
-bladder scan/straight cath protocol
-encourage ambulation
-Refusing bladder scan and kirk catheter placement
-probably chronic issue
-flomax trial
-OP urogyn f/u
History of CAD
-Continue aspirin
-Plan to DC plavix as on Eliquis
-cards following
History of paroxysmal supraventricular tachycardia
Chronic left bundle branch block
Severe aortic stenosis status post TAVR
History of TIA s/p CEA
-Continue aspirin
-Continue statin
Essential hypertension
-DC hydrochlorothiazide
-Continue metoprolol
-BP well controlled 123/56
Hyperlipidemia
Peripheral arterial disease
Obesity
Degenerative joint disease
Chronic back pain
DNR/DNI
DVT prophylaxis�eliquis
Anticipated Discharge: > 48 hours
Subjective/Interval History
-
Date of Service: June 06, 2024
eating breakfast
denies suprapubic pain
refusing bladder scan protocol
voiding
Objective Data
-
Labs:
Laboratory Results
06/06/24
04:30
Sodium 142
Potassium 4.7
Chloride 107
Carbon Dioxide 27
BUN 28 H
Creatinine 0.9
Glucose 100 H
Calcium 9.2
Vital Signs:
Vital Signs
Temp Pulse Resp BP Pulse Ox
97.6 F 56 16 134/50 96
06/06/24 07:09 06/06/24 10:00 06/06/24 07:09 06/06/24 09:10 06/06/24 07:09
I&O
06/05/24 06/06/24 06/07/24
06:59 06:59 06:59
Intake Total 2300 / 2300 400 / 400
Output Total 2875 / 2875 800 / 800
Balance -575 / -575 -400 / -400
Physical Exam
-
General: Well Developed, Well Nourished and No Apparent Distress
HEENT: Normocephalic, Atraumatic, Moist Mucous Membranes and PERRLA
Respiratory: Clear to Auscultation
Cardiac: Regular Rhythm and S1/S2; Negative Murmur, Rub or JVD
GI: Soft, Nontender, Nondistended and Normal Bowel Sounds
Musculoskeletal: No Clubbing, No Cyanosis and No Edema
Neuro: Awake, Alert, Oriented, No Motor Deficits and Nonfocal/Grossly Intact
Psych: Calm
[2024-06-06] MEDS: TIKOSYN 250 MCG PO ×2 (11:21→22:31)
--- NOTE | 2024-06-06 12:35 | PTCARENOTE ---
Assumed care at 0700. VSS. Sinus dian w/ PAC couplets in 50s, or intermittent a fib, rate controlled in 70s on telemetry. Cardiology aware. Orders to start Tikosyn. Baseline Qtc 394. First dose given, see MAR. Patient updated on plan of care.
[2024-06-06] MEDS: LIPITOR 10 MG PO (17:43)
[2024-06-06] MEDS: FLOMAX 0.4 MG PO (17:43)
[2024-06-07] VITALS (7 sets, daily range): BP systolic 110–140; BP diastolic 49–60
[2024-06-07 05:25] LABS: Blood Urea Nitrogen 25 mg/dl (7-17); Carbon Dioxide 28 mmol/L (22-30); Chloride 108 mmol/L (98-107); Estimated Creatinine Clearance 53 ml/min; Glucose 88 mg/dl (70-99); Potassium 4.4 mmol/L (3.5-5.1); Sodium 141 mmol/L (135-145); eGFR > 60.00
[2024-06-07] MEDS: ASPIR LOW (ENTERIC COATED) 81 MG PO (08:11)
[2024-06-07] MEDS: THERAGRAN 0.5 TABLET PO (08:12)
[2024-06-07] MEDS: FLOMAX 0.4 MG PO (08:12)
[2024-06-07] MEDS: VITAMIN D3 (cholecalciferol) 50 MCG PO (08:12)
[2024-06-07] MEDS: TOPROL XL 25 MG PO (08:12)
[2024-06-07] MEDS: OSCAL 500 + D 250 MG PO (08:13)
[2024-06-07] MEDS: ELIQUIS 5 MG PO ×2 (08:13→19:31)
[2024-06-07] MEDS: VITAMIN B-12 1000 MCG PO (08:13)
[2024-06-07] MEDS: TIKOSYN 250 MCG PO ×2 (10:05→21:53)
--- NOTE | 2024-06-07 10:12 | W.PN.HOSP.TC ---
Today's Communication/Plan
-
cont with tikosyn loading
cards recs
cont eliquis
Assessment / Plan
Assessment / Plan
# New onset atrial fibrillation with RVR
-s/p cardizem gtt and hep gtt
-in and out of Afib
-Started on Eliquis
-Toprol decrease to 25mg daily from BID earlier
-TSH 1.92
-ECHO 70-75%. Wall motion consistent with conduction abnormality.
-No plan for SPENCER
-Started on Tikosyn loading per EP. Qtc this am 484. Dose 05/14.
-cards following
Urinary retention
-bladder scan/straight cath protocol
-encourage ambulation
-Refusing bladder scan and kirk catheter placement
-probably chronic issue
-flomax trial
-OP urogyn f/u
History of CAD
-Continue aspirin
-Plan to DC plavix as on Eliquis
-cards following
History of paroxysmal supraventricular tachycardia
Chronic left bundle branch block
Severe aortic stenosis status post TAVR
History of TIA s/p CEA
-Continue aspirin
-Continue statin
Essential hypertension
-DC hydrochlorothiazide
-Continue metoprolol
-BP well controlled 123/56
Hyperlipidemia
Peripheral arterial disease
Obesity
Degenerative joint disease
Chronic back pain
DNR/DNI
DVT prophylaxis�eliquis
Anticipated Discharge: Within 24 hours
Subjective/Interval History
-
Date of Service: June 07, 2024
tolerating tikosyn
HR around 60s on tele-in nsr
Objective Data
-
Labs:
Laboratory Results
06/07/24
03:55
Sodium 141
Potassium 4.4
Chloride 108 H
Carbon Dioxide 28
BUN 25 H
Creatinine 0.8
Glucose 88
Calcium 9.0
Vital Signs:
Vital Signs
Temp Pulse Resp BP Pulse Ox
97.5 F 57 20 110/55 96
06/07/24 07:48 06/07/24 06:00 06/07/24 07:48 06/07/24 08:12 06/07/24 07:48
I&O
06/06/24 06/07/24 06/08/24
06:59 06:59 06:59
Intake Total 400 / 400 480 / 480
Output Total 800 / 800 1250 / 1250 500 / 500
Balance -400 / -400 -770 / -770 -500 / -500
Physical Exam
-
General: Well Developed, Well Nourished and No Apparent Distress
HEENT: Normocephalic, Atraumatic, Moist Mucous Membranes and PERRLA
Respiratory: Clear to Auscultation
Cardiac: Regular Rhythm and S1/S2; Negative Murmur, Rub or JVD
GI: Soft, Nontender, Nondistended and Normal Bowel Sounds
Musculoskeletal: No Clubbing, No Cyanosis and No Edema
Neuro: Awake, Alert, Oriented, No Motor Deficits and Nonfocal/Grossly Intact
Psych: Calm
--- NOTE | 2024-06-07 17:22 | W.PN.CD ---
Today's Communication / Plan
-
Continue Dofetilide
Home after 6th dose
Stay off HCTZ (interaction with dofetilide)
Decrease metoprolol ER for modest SB
Stop ASA
Will need to monitor BP with med changes, so far BP fine
Impression / Plan
-
Background: 84F with prior severe aortic stenosis (s/p TAVR 2021), CAD (JAVASCRIPT DEVELOPER of RCA), PSVT, carotid artery stenosis (CEA 05/2022), PAD (90% innominate, 70% common CCA), LBBB/IVCD, HTN, HLD, prior TIA, preDM, & obesity who presented to the emergency
department with a chief complaint of palpitations. She was found to be in atrial fibrillation with rapid ventricular response.
Outpatient prepress operator: Dr. Anna
Paroxysmal atrial fibrillation, NEW diagnosis this admission
- In sinus
- Tolerating dofetilide => QTc now 430 despite IVCD of 120 ms
- Tele with no significant bradycardia AND no CESAR/no PVC/VT/Torsades
- Mild SB => will decrease metoprolol ER to 12.5 mg one time daily
- Home after 6th dose of dofetilide
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
Carotid disease, PAD, chronic
HTN: STAY off HCTZ while on dofetilide
S/p TAVR for severe => Stable on echocardiogram 06/04/2024, well-seated with peak/mean gradients 30/17 mmHg
IVCD/LBBB, chronic and stable, QRS upto 120 ms
HLD, continue atorvastatin
Prediabetes
SUBJECTIVE:
Feeling well without chest pain, shortness of breath, and dizziness.
Physical Exam
Vital Signs/Labs
Vital Signs
Temp Pulse Resp BP Pulse Ox
98.3 F 58 20 110/55 94
06/07/24 16:06 06/07/24 10:00 06/07/24 16:06 06/07/24 08:12 06/07/24 16:06
06/06/24 06/07/24 06/08/24
06:59 06:59 06:59
Actual Weight 84 kg
06/05/24 03:34
06/07/24 03:55
APTT 103.9 Sec (23.4-35.0) H 06/04/24 10:33
Magnesium 2.0 mg/dl (1.6-2.3) 06/05/24 03:34
Physical Exam
Constitutional: No acute distress
EENT: Anicteric
Cardiovascular: Rhythm & rate is regular and Pedal edema is absent
Respiratory: Respiratory effort normal and Lungs clear to auscul.
GI: Soft and Distention absent
Neuro/Psych: AO x 3
Data Reviewed
-
Date of Service: June 07, 2024
[2024-06-07] MEDS: LIPITOR 10 MG PO (18:43)
--- NOTE | 2024-06-08 | PTCARENOTE ---
Patient's QTc after 4th dose of Tikosyn is 472.
[2024-06-08 04:15] VITALS: BP 142/49
[2024-06-08 05:32] LABS: Blood Urea Nitrogen 26 mg/dl (7-17); Calcium 8.8 mg/dl (8.4-10.2); Carbon Dioxide 25 mmol/L (22-30); Chloride 108 mmol/L (98-107); Estimated Creatinine Clearance 53 ml/min; Glucose 109 mg/dl (70-99); Potassium 4.3 mmol/L (3.5-5.1); Sodium 141 mmol/L (135-145); eGFR > 60.00
[2024-06-08 06:53] VITALS: BP 126/50
--- NOTE | 2024-06-08 08:33 | W.PN.CD ---
Today's Communication / Plan
-
- Continue dofetilide => QTc stable; will receive 5th dose this a.m. and 6th dose this p.m.--discharge to home tomorrow a.m. if QTc remains stable.
Impression / Plan
-
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
Department with a chief complaint of palpitations. She was found to be in atrial fibrillation with rapid ventricular response.
Outpatient Container Crane Operator: Dr. Anna
Paroxysmal atrial fibrillation, NEW diagnosis this admission
- In sinus
- Continue dofetilide => QTc stable; will receive 5th dose this a.m. and 6th dose this p.m.--discharge to home tomorrow a.m. if QTc remains stable.
- Tele with no significant bradycardia AND no CESAR/no PVC/VT/Torsades
- Continue lower dose of metoprolol succinate ER 12.5 mg daily.
CAD with RCA INBOUND CALL CENTER REPRESENTATIVE
-Now on Eliquis; aspirin discontinued.
Carotid disease, PAD, chronic
HTN: STAY off HCTZ while on dofetilide--BP controlled.
S/p TAVR for severe => Stable on echocardiogram 06/04/2024, well-seated with peak/mean gradients 30/17 mmHg
IVCD/LBBB, chronic and stable, QRS upto 120 ms
HLD, continue atorvastatin
Prediabetes
SUBJECTIVE:
No cardiac complaints this a.m.
Physical Exam
Vital Signs/Labs
Vital Signs
Temp Pulse Resp BP Pulse Ox
97.8 F 80 20 142/49 94
06/08/24 07:04 06/08/24 06:00 06/08/24 07:04 06/08/24 04:15 06/08/24 07:04
06/05/24 03:34
06/08/24 04:16
APTT 103.9 Sec (23.4-35.0) H 06/04/24 10:33
Magnesium 2.0 mg/dl (1.6-2.3) 06/05/24 03:34
Physical Exam
Constitutional: No acute distress and Comfortable
EENT: Anicteric
Cardiovascular: Rhythm & rate is regular, Pedal edema is absent, Systolic murmur absent and S1S2 is normal
Respiratory: Respiratory effort normal and Lungs clear to auscul.
GI: Soft
Neuro/Psych: AO x 3
Other: Skin (Warm, dry, intact)
Data Reviewed
-
Date of Service: June 08, 2024
EKG: Tracing Personally Visualized and interpreted (Telemetry: Sinus rhythm)
Medical Tests (PFT, Pathology etc): Discussed with Nurse and Discussed with Patient
Labs: Labs Reviewed by me
[2024-06-08] MEDS: VITAMIN B-12 1000 MCG PO (09:01)
[2024-06-08] MEDS: VITAMIN D3 (cholecalciferol) 50 MCG PO (09:01)
[2024-06-08] MEDS: THERAGRAN 0.5 TABLET PO (09:02)
[2024-06-08] MEDS: OSCAL 500 + D 250 MG PO (09:02)
[2024-06-08] MEDS: TOPROL XL 12.5 MG PO (09:02)
[2024-06-08] MEDS: ELIQUIS 5 MG PO ×2 (09:02→21:03)
[2024-06-08] MEDS: FLOMAX 0.4 MG PO (09:02)
[2024-06-08] MEDS: TIKOSYN 250 MCG PO ×2 (09:32→21:03)
--- NOTE | 2024-06-08 10:54 | PTCARENOTE ---
Assumed care this morning at 0700. Patient AOX3. NSR with PAF on telemetry. Tikosyn 4th dose given at 0930, EKG at 1130. Plan of care reviewed, call lopez in reach
--- NOTE | 2024-06-08 12:24 | W.PN.HOSP.TC ---
Today's Communication/Plan
-
Continue with Tikosyn load
Telemetry
Monitor BMP, mag
Likely discharge tomorrow
Assessment / Plan
Assessment / Plan
#New onset atrial fibrillation with RVR
#H/O paroxysmal SVT
-Nonvalvular; [id number] score 7; s/p cardizem gtt and hep gtt
-TSH within normal limits; echocardiogram with preserved EF
-Has been started on Eliquis and metoprolol 12.5 mg daily
-Currently on Tikosyn load as per cardiology
-QTc <500 ms on current dose of Tikosyn
-Last loading dose of dofetilide evening 06/08
-Continue on telemetry
#Urinary retention
-Patient refusing bladder scans and Bartlett catheter placement
-encourage ambulation
-probably chronic issue
-flomax trial
-OP urogyn f/u
#History of CAD
-Home medications include DAPT with aspirin and Plavix, statin, beta-joss
-DAPT has been transition to Eliquis alone
-No concerns for acute coronary syndrome here
#Carotid stenosis s/p CEA
#Peripheral arterial disease
#History of TIA
-Home regimen included DAPT and statin
-Now currently on DOAC and statin
#Essential hypertension
-Home regimen includes hydrochlorothiazide and metoprolol
-HCTZ was discontinued, BP remains well-controlled
#Chronic left bundle branch block
#Severe aortic stenosis status post TAVR
#Hyperlipidemia
#Obesity
#Degenerative joint disease
#Chronic back pain
Diet: Regular
CODE STATUS: DNR/DNI
DVT prophylaxis: eliquis
Disposition: Discharge tomorrow morning
Anticipated Discharge: Within 24 hours
Subjective/Interval History
-
Date of Service: June 08, 2024
Seen and examined the bedside. No acute events overnight. AFVSS this morning
QTc 453 ms on a.m. ECG
Patient denies any complaints as of this
Objective Data
-
Labs:
Laboratory Results
06/08/24
04:16
Sodium 141
Potassium 4.3
Chloride 108 H
Carbon Dioxide 25
BUN 26 H
Creatinine 0.8
Glucose 109 H
Calcium 8.8
Vital Signs:
Vital Signs
Temp Pulse Resp BP Pulse Ox
97.8 F 61 20 126/50 94
06/08/24 07:04 06/08/24 10:00 06/08/24 07:04 06/08/24 06:53 06/08/24 07:04
I&O
06/07/24 06/08/24 06/09/24
06:59 06:59 06:59
Intake Total 480 / 480 660 / 660
Output Total 1250 / 1250 1700 / 1700
Balance -770 / -770 -1040 / -1040
Review of Systems
-
History Source: Patient
All other systems: Reviewed and negative
Physical Exam
-
General: Well Developed, Well Nourished, No Apparent Distress and Comfortable
Respiratory: Clear to Auscultation and Non Labored Respirations
Cardiac: Regular Rhythm, S1/S2 and Murmur; Negative Rub or Gallop
GI: Soft, Nontender, Nondistended and Normal Bowel Sounds
Musculoskeletal: No Clubbing, No Cyanosis and No Edema
Skin: Warm, Dry and Normal Turgor; Negative Rash
Neuro: AO x 3 and Nonfocal/Grossly Intact
Psych: Calm
Data Reviewed
-
Labs: Labs Reviewed by me and Discussed with Patient
[2024-06-08 13:09] VITALS: BP 134/51
--- NOTE | 2024-06-08 13:39 | CM ---
CM following for DC planning needs.
Met w/ patient at bedside. She reports that she is feeling well. She is currently on a Dofetilide load.
Reviewed initial assessment. Pt. resides w/ son in a private, 2 home. She is functionally indep. at baseline w/ use of a RW/ SPC.
Pt. declined any DC needs.
Will follow PT recommendations and offer VN, if indicated.
Anticipate DC to home once stable.
[2024-06-08] MEDS: LIPITOR 10 MG PO (16:57)
[2024-06-08 19:37] VITALS: BP 145/58
[2024-06-08 22:58] VITALS: BP 142/51
[2024-06-09 02:35] VITALS: BP 131/55; BMI 35.0
[2024-06-09 03:53] LABS: Blood Urea Nitrogen 22 mg/dl (7-17); Calcium 8.8 mg/dl (8.4-10.2); Carbon Dioxide 24 mmol/L (22-30); Chloride 109 mmol/L (98-107); Estimated Creatinine Clearance 53 ml/min; Glucose 106 mg/dl (70-99); Magnesium 2.3 mg/dl (1.6-2.3); Potassium 4.5 mmol/L (3.5-5.1); Sodium 142 mmol/L (135-145); eGFR > 60.00
[2024-06-09 08:16] VITALS: BP 140/62
[2024-06-09] MEDS: ELIQUIS 5 MG PO (08:46)
[2024-06-09] MEDS: VITAMIN D3 (cholecalciferol) 50 MCG PO (08:46)
[2024-06-09] MEDS: VITAMIN B-12 1000 MCG PO (08:46)
[2024-06-09] MEDS: FLOMAX 0.4 MG PO (08:46)
[2024-06-09] MEDS: TOPROL XL 12.5 MG PO (08:46)
[2024-06-09] MEDS: OSCAL 500 + D 250 MG PO (08:47)
[2024-06-09] MEDS: THERAGRAN 0.5 TABLET PO (08:47)
[2024-06-09] MEDS: TIKOSYN 250 MCG PO (08:48)
--- NOTE | 2024-06-09 10:37 | W.PN.HOSP.TC ---
Today's Communication/Plan
-
Continue dofetilide and DOAC
Outpatient cardiology follow
Assessment / Plan
Assessment / Plan
#New onset atrial fibrillation with RVR
#H/O paroxysmal SVT
-Nonvalvular; [id number] score 7; s/p cardizem gtt and hep gtt
-TSH within normal limits; echocardiogram with preserved EF
-Has been started on Eliquis and metoprolol 12.5 mg daily
-Currently on Tikosyn load as per cardiology
-QTc <500 ms on current dose of Tikosyn
-Last loading dose of dofetilide evening 06/08
-Continue on telemetry
#Urinary retention
-Patient refusing bladder scans and Bartlett catheter placement
-encourage ambulation
-probably chronic issue
-flomax trial
-OP urogyn f/u
#History of CAD
-Home medications include DAPT with aspirin and Plavix, statin, beta-joss
-DAPT has been transition to Eliquis alone
-No concerns for acute coronary syndrome here
#Carotid stenosis s/p CEA
#Peripheral arterial disease
#History of TIA
-Home regimen included DAPT and statin
-Now currently on DOAC and statin
#Essential hypertension
-Home regimen includes hydrochlorothiazide and metoprolol
-HCTZ was discontinued, BP remains well-controlled
#Chronic left bundle branch block
#Severe aortic stenosis status post TAVR
#Hyperlipidemia
#Obesity
#Degenerative joint disease
#Chronic back pain
Diet: Regular
CODE STATUS: DNR/DNI
DVT prophylaxis: eliquis
Disposition: Discharge tomorrow morning
Anticipated Discharge: Today
Subjective/Interval History
-
Date of Service: June 09, 2024
Seen and examined at the bedside. No acute events reported overnight. AFVSS this morning
QTc yesterday near 454 ms. ECG this morning pending, if QTc stable can be discharged
She denies any new complaints as of this morning
Objective Data
-
Labs:
Laboratory Results
06/09/24
02:46
Sodium 142
Potassium 4.5
Chloride 109 H
Carbon Dioxide 24
BUN 22 H
Creatinine 0.8
Glucose 106 H
Calcium 8.8
Vital Signs:
Vital Signs
Temp Pulse Resp BP Pulse Ox
97.7 F 75 18 140/62 95
06/09/24 08:17 06/09/24 10:00 06/09/24 08:17 06/09/24 08:16 06/09/24 08:17
I&O
06/08/24 06/09/24 06/10/24
06:59 06:59 06:59
Intake Total 660 / 660
Output Total 1700 / 1700 900 / 900
Balance -1040 / -1040 -900 / -900
Review of Systems
-
History Source: Patient
All other systems: Reviewed and negative
Physical Exam
-
General: Well Developed, No Apparent Distress, Comfortable and Obese
HEENT: Normocephalic, Atraumatic, Moist Mucous Membranes and Anicteric
Respiratory: Clear to Auscultation and Non Labored Respirations
Cardiac: Regular Rhythm, S1/S2 and Murmur; Negative Rub or Gallop
GI: Soft, Nontender, Nondistended and Normal Bowel Sounds
Musculoskeletal: No Clubbing, No Cyanosis and No Edema
Skin: Warm, Dry and Normal Turgor; Negative Rash
Neuro: AO x 3 and Nonfocal/Grossly Intact
Psych: Calm
Data Reviewed
-
Labs: Labs Reviewed by me and Discussed with Patient
--- NOTE | 2024-06-09 10:40 | W.PN.CD ---
Today's Communication / Plan
-
- Stable for discharge from EP stand point.
Impression / Plan
-
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
Department with a chief complaint of palpitations. She was found to be in atrial fibrillation with rapid ventricular response.
Outpatient Director Of Curriculum: Dr. Anna
Paroxysmal atrial fibrillation, NEW diagnosis this admission
- In sinus
- Continue dofetilide => QTc stable; s/p 7th dose this a.m.--discharge to home today.
- Tele with no significant bradycardia AND no CESAR/no PVC/VT/Torsades
- Continue lower dose of metoprolol succinate ER 12.5 mg daily.
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
-Now on Eliquis; aspirin discontinued.
Carotid disease, PAD, chronic
HTN: STAY off HCTZ while on dofetilide--BP controlled.
S/p TAVR for severe => Stable on echocardiogram 06/04/2024, well-seated with peak/mean gradients 30/17 mmHg
IVCD/LBBB, chronic and stable, QRS upto 120 ms
HLD, continue atorvastatin
Prediabetes
SUBJECTIVE:
No cardiac complaints this a.m.
Physical Exam
Vital Signs/Labs
Vital Signs
Temp Pulse Resp BP Pulse Ox
97.7 F 75 18 140/62 95
06/09/24 08:17 06/09/24 10:00 06/09/24 08:17 06/09/24 08:16 06/09/24 08:17
06/08/24 06/09/24 06/10/24
06:59 06:59 06:59
Actual Weight 85.5 kg
06/05/24 03:34
06/09/24 02:46
APTT 103.9 Sec (23.4-35.0) H 06/04/24 10:33
Magnesium 2.3 mg/dl (1.6-2.3) 06/09/24 02:46
Physical Exam
Constitutional: No acute distress and Comfortable
EENT: Anicteric and Moist mucous membranes
Cardiovascular: Rhythm & rate is regular, Pedal edema is absent, JVD pressure is normal and Systolic murmur absent
Respiratory: Respiratory effort normal, Lungs clear to auscul., Wheeze Absent and Crackles Absent
GI: Soft, Non tender and Normal bowel sounds
Neuro/Psych: Alert, Oriented and AO x 3
Data Reviewed
-
Date of Service: June 09, 2024
Medical Decision Making: Reviewed Test Results, Test Interpretation and Review of Case with other Provider
EKG: Tracing Personally Visualized and interpreted
Labs: Labs Reviewed by me
Old Records: Reviewed
[2024-06-09 10:54] VITALS: PULSE 105; PULSE 75; O2SAT 98
[2024-06-09 11:13] VITALS: BP 161/62
[2024-06-09 11:14] VITALS: BP 160/54
[2024-06-09 11:26] VITALS: BP 157/72
--- NOTE | 2024-06-09 12:05 | PTCARENOTE ---
Discharge teaching completed, patient verbalized understanding. 3 day supply of Tikosyn filled at the pharmacy and given to the patient. IV and telemetry removed. Son will be picking her up today
--- NOTE | 2024-06-09 13:11 | CM ---
CM following for DC planning needs.
Met w/ patient @ bedside. Pt. feels prepared for DC to home; offers no concerns or needs at this time. Declines need for VN.
Coupon for Eliquis + GoodRX coupon for Dofetilide on chart.
Call to pharmacy- Dofetilide in stock. 3- day supply to be provided @ DC.
Plan is for home, no needs.
--- NOTE | 2024-06-10 14:32 | W.DCSUMMARY ---
Discharge Summary
Discharge Data
Date of Admission: 06/03/24
Date of Discharge: 06/09/24
Total time spent discharging patient (in min): 31
-
Pending Results: No
Hospital Course
Discharging Physician : Shayne Bella DO
Disposition : Home
Principal Discharge diagnosis :
New onset paroxysmal AF
Urine retention
Chronic Discharge diagnosis :
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
HTN
HLD
LBBB
H/O TIA
S/P TAVR
Hospital Course :
84-year-old female that presented to the hospital with a complaint of tachycardia and chest tightness. Initial ECG showing new onset atrial fibrillation with RVR, heart rate in the 140s. Received IV heparin drip and IV diltiazem drip for
anticoagulation and rate control. Was transition to Eliquis for long-term anticoagulation. Echocardiogram demonstrated previous TAVR, no acute findings. Was transition off diltiazem drip and onto oral metoprolol. Cardiology started dofetilide
load and patient received 6 doses of dofetilide in the hospital with QTc stable near 450 ms. Was started on tamsulosin for urinary retention, patient refused Bartlett catheter and bladder scans. Was able to void spontaneously at time of discharge.
After discharge was encouraged for follow-up with family doctor. 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 Due to initiation of Tikosyn and Eliquis, DAPT and HCTZ were discontinued.
Consultants :
Electrical Design Technician�Orion Anna MD
Important imaging findings :
Echocardiogram 06/04/2024
Conclusions: LV ejection fraction is 70-75%, by visual assessment. Wall motion consistent with conduction abnormality. Normal right ventricular size and function. Well-seated TAVR with peak/mean gradients of 30/17 mmHg. Mild tricuspid regurgitation.
Estimated pulmonary artery pressure of 35-40 mmHg. No significant change since the prior study of 10/04/2023.
Procedure findings : N/A
Follow-up :
Follow-up with PCP and return to factory clerk
CBC and BMP 1 week after discharge
Discharge Plan
-
Patient Disposition: Home (Routine Discharge)
Discharge Diagnosis/Procedures: Paroxysmal atrial fibrillation
Urine retention
Condition: Good
Diet: Low Cholesterol and No added salt
Activity: As tolerated
Driving Restrictions: As prior to admission
Bathing Restrictions: None
Blood Work: BMP and CBC when seen by primary care doctor
Others Tests: None
Activity Restrictions/Additional Instructions:
After discharge from the hospital schedule follow-up appointment with your family doctor. Should be seen in office within 1 to 2 weeks of discharge
You have a follow-up with cardiology on 06/28/2024 at 10 AM. Please make sure you attend this appointment
Instructions: Atrial fibrillation - Discharge instructions
Referrals:
Kelly Taveras CRNP [Specified Professional Personl] - 07/02/24 10:00 am
Forrest Fallon MD [Family Provider] -
Additional Discharge Medication Instructions: Start dofetilide 250 mcg every 12 hours indefinitely
Start Eliquis 5 mg every 12 hours indefinitely
Reduce metoprolol succinate to 12.5 mg daily
Start tamsulosin 0.4 mg daily
Stop taking aspirin, clopidogrel, hydrochlorothiazide
Prescriptions:
New
Eliquis 5 mg Tablet
5 mg PO BID 30 Days Qty: 60 0RF
tamsulosin 0.4 mg Capsule
0.4 mg PO DAILY 30 Days Qty: 30 0RF
dofetilide 250 mcg Capsule
250 mcg PO Q12H 30 Days Qty: 60 0RF
metoprolol succinate 25 mg Tablet Extended Release 24 Hr
12.5 mg PO DAILY 30 Days Qty: 15 0RF
Continued
cyanocobalamin (vitamin B-12) 1,000 MCG tablet
1,000 mcg sublingual DAILY
calcium carbonate-vitamin D3 1 EACH tablet
0.5 tab PO DAILY
atorvastatin 20 mg Tablet
10 mg PO QPM
therapeutic multivitamin Tablet
0.5 tab PO DAILY
cholecalciferol (vitamin D3) [Vitamin D3] 50 mcg (2,000 unit) Tablet
50 mcg PO DAILY
Discontinued
clopidogrel 75 MG tablet
75 mg PO QPM
aspirin 81 mg Tablet,Delayed Release (Dr/Ec)
81 mg PO DAILY Qty: 90 0RF
metoprolol succinate 25 mg Tablet Extended Release 24 Hr
25 mg PO QPM
hydrochlorothiazide 12.5 mg Tablet
12.5 mg PO DAILY
Discharge Orders:
Discharge Patient (As Directed); Ordered 06/09/24
Ordered By: Shayne Bella
Care Plan Goals
Care Plan Goals:
Problem: Readiness for enhanced knowledge related to diagnosis and treatment plan
Goal: Understand your diagnosis and treatment plan needs, including medications if applicable.
Instructions: Know your diagnosis, underlying causes and treatment plan options, including medications if applicable. Consult with your health care team to learn about your diagnosis and treatment plan, including medications if applicable.
Discharge Date and Time
Discharge Date/Time: 06/09/24 14:13
Print Language: [place]OT[place]
== END 2024-06-09 14:13 | disposition home or self-care (01) | DRG 310 ==
LOC: IVU 20:16
PROVIDERS: Hospitalist; Student in an Organized Health Care Education/Training Program; ADMITTING PHYSICIAN Hospitalist; ATTENDING PHYSICIAN Internal Medicine; CONSULT PHYSICIAN Internal Medicine Cardiovascular Disease; EMERGENCY PHYSICIAN Emergency Medicine; FAMILY PHYSICIAN Internal Medicine
DX: I48.0 Paroxysmal atrial fibrillation (principal); R33.9 Retention of urine, unspecified; I25.10 Atherosclerotic heart disease of native coronary artery without angina pectoris; I10 Essential (primary) hypertension; E78.00 Pure hypercholesterolemia, unspecified; E66.9 Obesity, unspecified; I44.7 Left bundle-branch block, unspecified; Z86.73 Personal history of transient ischemic attack (TIA), and cerebral infarction without residual deficits; Z95.2 Presence of prosthetic heart valve; Z68.35 Body mass index [BMI] 35.0-35.9, adult; Z79.01 Long term (current) use of anticoagulants
CPT/HCPCS: 80048; 80053; 83735; 84443; 84484; 85025; 85027; 85730; 93005; 93306; 96365; 96366; 96367; 97116; 97162; 97530; 99291

== ENCOUNTER 2024-07-08 16:47 | Emergency (ER) | payer OTHER, SELFPAY ==
[2024-07-08 16:49] VITALS: BP 183/102
[2024-07-08 17:05] VITALS: BP 178/106
[2024-07-08 17:07] VITALS: BP 178/106
[2024-07-08 17:11] VITALS: BMI 37.0
[2024-07-08 17:16] LABS: % Basophils 0.6 % (0-2); % Eosinophils 1.3 % (0-6); % Immature Granulocytes 0.4 % (0-0.5); % Lymphocytes 26.4 % (20.5-51.1); % Monocytes 9.3 % (1.7-9.3); Absolute Basophils 0.1 10^3/uL (0-0.2); Absolute Eosinophils 0.1 10^3/uL (0-0.7); Absolute Lymphocytes 2.8 10^3/uL (1.2-3.4); Absolute Neutrophils 6.5 10^3/uL (1.4-6.5); Hemoglobin 13.9 g/dL (12.0-16.0); Mean Corp Hgb Conc. 34.8 g/dL (33.0-37.0); Mean Corpuscular Hgb 31.4 pg (27.0-31.0); Mean Corpuscular Volume 90.5 fL (81.0-99.0); Nucleated Red Blood Cells % 0 %; Platelet Count 167 10^3/uL (130-400); Red Blood Cell Count 4.42 10^6/uL (4.20-5.40); Red Cell Dist. Width 13.9 % (11.5-14.5); White Blood Cell Count 10.5 10^3/uL (4.8-10.8)
[2024-07-08 17:31] LABS: ALT (SGPT) 39 U/L (0-35); AST (SGOT) 37 U/L (14-36); Albumin 4.6 g/dl (3.5-5.0); Alkaline Phosphatase 83 U/L (38-126); Blood Urea Nitrogen 28 mg/dl (7-17); Calcium 9.4 mg/dl (8.4-10.2); Carbon Dioxide 24 mmol/L (22-30); Chloride 105 mmol/L (98-107); Estimated Creatinine Clearance 54 ml/min; Glucose 140 mg/dl (70-99); Potassium 4.2 mmol/L (3.5-5.1); Sodium 142 mmol/L (135-145); Total Bilirubin 0.6 mg/dl (0.2-1.3); Total Protein 6.7 g/dl (6.3-8.2); eGFR > 60.00
--- NOTE | 2024-07-08 18:08 | ED.GENMED ---
History of Present Illness
General
Chief Complaint: Heart Rate Problem
Time Seen by Provider: 07/08/24 17:14
History of Present Illness
History of Present Illness:
84-year-old female with history of hypertension, hyperlipidemia, recent diagnosis of atrial fibrillation on Tikosyn and metoprolol and Eliquis presenting for palpitations. Patient reports prior to arrival she felt like her heart rate was high.
Patient with recent hospital admission from 06/03 to 06/09 for new onset atrial fibrillation. Patient was treated with Tikosyn, discharged on Tikosyn, Eliquis, metoprolol. Reports that she has been following cardiology, CBC. Denies any associated
chest pain or dyspnea. Denies abdominal pain or GI symptoms. Denies additional acute medical complaints.
Past History
Past History
ED Past Medical History: HTN, Hypercholesterolemia, Valvular disease and Other (OA,)
ED Past Surgical History: Cardiac, Cholecystectomy and Orthopedic
Social History
Tobacco: Former smoker
Alcohol: None
Drug: None
Personal:
Living: with family
Phy Exam
Physical Exam
Physical Exam:
General: Well-appearing, no clinical signs of dehydration, nontoxic and in no acute distress
HEENT: protecting airway
Neck: appears supple
CV: Irregular irregular rhythm, tachycardic
Resp: No accessory muscle use, no increased work of breathing, lungs clear to auscultation bilaterally
Abd: no distension
Extremities: No deformities, no swelling
Neuro: alert, no focal neurologic deficit
: deferred
Rectal: deferred
Psych: Normal affect
Skin: Intact
Course
Orders/Labs/Results
Orders:
Orders
07/08/24 16:52
ECG [Electrocardiogram (*1)] Urgent
Reason for Study: Tachycardia
EKG- Treatment ONCE
07/08/24 17:09
CMP [Comprehensive Metabolic Panel] Urgent
Complete Blood Count/With Diff Urgent
07/08/24 18:07
Metoprolol [Lopressor] 5 mg IV NOW STA
07/08/24 18:31
0.9% Sodium Chloride 1000 ml [Nss] 1,000 ml IV BOLUS
07/08/24 18:40
Electrocardiogram (*1) Urgent
Reason for Study: Palpitations
EKG- Treatment ONCE
Abnormal Lab Results
07/08/24
17:09
MCH 31.4 H pg
(27.0-31.0)
MPV 11.0 H fL
(7.4-10.4)
Absolute Monos (auto) 1.0 H 10^3/uL
(0.1-0.6)
BUN 28 H mg/dl
(7-17)
Glucose 140 H mg/dl
(70-99)
AST 37 H U/L
(14-36)
ALT 39 H U/L
(0-35)
07/08/24 17:09
07/08/24 17:09
Vital Signs
Initial and Last Documented VS:
Initial Vital Signs
Temp Pulse Resp BP Pulse Ox
98.1 F 148 20 183/102 95
07/08/24 16:49 07/08/24 16:49 07/08/24 16:49 07/08/24 16:49 07/08/24 16:49
Last Documented Vital Signs
Temp Pulse Resp BP Pulse Ox
98.1 F 105 23 169/61 94
07/08/24 16:49 07/08/24 19:00 07/08/24 19:00 07/08/24 19:00 07/08/24 19:00
MDM/Problems Addressed
MDM/Problems Addressed:
84-year-old female with new diagnosis of A-fib presenting for palpitations. Vital signs on arrival significant for tachycardia and hypertension.
On exam patient resting comfortably, no acute distress. EKG confirms A-fib. Plan for screening laboratory analysis and discuss with cardiology. Otherwise no signs of volume overload, no respiratory distress.
18:35 - In discussion with cardiology, recommends cardioversion. Patient is very hesitant to proceeding with cardioversion. Risk and benefits explained. Heart rate has improved without intervention. Will recheck EKG. Did also discuss increasing
her metoprolol dose, however notes that her cardiology LOCATION WORKER recently increased her from 12.5 to 25 mg daily and her resting heart rate is in the 50s to 60s. At this time do not feel comfortable increasing her daily metoprolol, and her Tikosyn cannot
be adjusted.
19:20 - Repeat EKG should now shows a sinus rhythm. Patient reports that her symptoms are much improved. At this time holding any additional medications, patient is due for metoprolol tonight. Will ambulate to ensure no significant tachycardia on
ambulation with ultimate plan for discharge and outpatient cardiology follow-up.
*EKG
Interpreted by ED Provider?: Yes
EKG Intrepretation Date: 07/08/24
EKG Intrepretation Time: 18:42
Interpretation: abnormal
Comparison EKG: changes noted (sinus 06/09/24)
Heart Rate: 139
Rate: tachycardiac
Rhythm: a-fib
[place]: normal axis
QRS Pattern: normal QRS
Ischemia: no ischemia
*Critical Care Note
Total Time (30-74mins, 75-104mins- exclusive of procedures): Not Applicable
ED Attending Note
-
Portions of this chart may have been created with voice recognition software.� Occasional wrong word or��sound alike� substitutions may have occurred due to the inherent limitations of voice recognition software.
Discharge Plan
Departure
Prescriptions:
No Action
cyanocobalamin (vitamin B-12) 1,000 MCG tablet
1,000 mcg sublingual DAILY
calcium carbonate-vitamin D3 1 EACH tablet
0.5 tab PO DAILY
atorvastatin 20 mg Tablet
10 mg PO QPM
therapeutic multivitamin Tablet
0.5 tab PO DAILY
cholecalciferol (vitamin D3) [Vitamin D3] 50 mcg (2,000 unit) Tablet
50 mcg PO DAILY
Eliquis 5 mg Tablet
5 mg PO BID 30 Days Qty: 60 0RF
tamsulosin 0.4 mg Capsule
0.4 mg PO DAILY 30 Days Qty: 30 0RF
dofetilide 250 mcg Capsule
250 mcg PO Q12H 30 Days Qty: 60 0RF
metoprolol succinate 25 mg Tablet Extended Release 24 Hr
12.5 mg PO DAILY 30 Days Qty: 15 0RF
Referrals:
Forrest Fallon MD [Family Provider] -
Interventions
Interventions:
*Risk Screen - Suicide Last Done: 07/08/24 17:12
*General Assessment Last Done: 07/08/24 16:49
*Neglect/Abuse Screening Last Done: 07/08/24 17:12
*ED- Fall Risk Assessment Last Done: 07/08/24 17:12
*ED COVID-19 Vaccine History Last Done: 07/08/24 17:12
ED- Cardiac Assessment Last Done: 07/08/24 17:12
ED- Pulmonary Assessment Last Done: 07/08/24 17:12
Discharge Date and Time
Print Language: CYMRO
[2024-07-08 18:30] VITALS: BP 172/67
[2024-07-08] MEDS: NSS 1000 IV (18:34)
[2024-07-08 19:00] VITALS: BP 169/61
== END 2024-07-08 20:25 | disposition home or self-care (01) ==
LOC: EMR 16:47
PROVIDERS: EMERGENCY PHYSICIAN Student in an Organized Health Care Education/Training Program; FAMILY PHYSICIAN Internal Medicine
DX: I48.91 Unspecified atrial fibrillation (principal); I10 Essential (primary) hypertension; E78.00 Pure hypercholesterolemia, unspecified; Z79.01 Long term (current) use of anticoagulants; Z87.891 Personal history of nicotine dependence; Z90.49 Acquired absence of other specified parts of digestive tract
CPT/HCPCS: 99283; 96374; 96361; 80053; 85025; 93005

== ENCOUNTER → 2024-09-15 09:28 | Outpatient (REF) | payer OTHER, SELFPAY | LOC: RAD 09:28 | PROVIDERS: ATTENDING PHYSICIAN Registered Nurse | DX: I73.9 Peripheral vascular disease, unspecified (principal) | CPT/HCPCS: 93880; 93922; 93925 ==